=== PATIENT | female | born 1990 ===

== ENCOUNTER 2016-10-25 06:35 | Inpatient (IN) ==
[2016-10-25] MEDS ORDERED: MEPERIDINE 50 MG/1 ML VIAL IV PRN (07:31)
[2016-10-25] MEDS ORDERED: BUTORPHANOL 2 MG/ML VIAL IV PRN (07:31)
[2016-10-25] MEDS ORDERED: ONDANSETRON 4 MG/2 ML VIAL IV PRN (07:31)
[2016-10-25 07:56] LABS: Basophils % 0.2 % (0.0-0.8); Eosinophils # 0.1 10*3/uL (0.0-0.87); Hematocrit 31.5 VOL% (35.7-47.0); Hemoglobin 10.3 GM/DL (12.0-16.0); Immature Granulocytes % 0.2 %; Immature Granulocytes Absolute 0.01 #; Lymphocytes # 1.9 10*3/uL (1.4-4.0); Lymphocytes % 34.4 % (21.3-54.2); Mean Corpuscular HGB Conc 32.7 GM/DL (32-36); Mean Corpuscular Hemoglobin 28 PG (27-34); Mean Platelet Volume 10.3 FL (9.6-12.0); Monocytes # 0.5 10*3/uL (0.11-0.8); Monocytes % 8.8 % (1.7-12.7); Neutrophils % 54.4 % (38.7-73.9); Platelet Count 211 T/CUMM (130-400); Red Blood Count 3.75 MC/CUMM (3.8-5.5); Red Cell Distribution Width 13.9 % (9.3-17.3); White Blood Count 5.4 T/CUMM (4-12)
[2016-10-25] MEDS ORDERED: OXYTOCIN/LR 20 UNIT/1,000 ML BAG IV SCH (08:00)
[2016-10-25] MEDS ORDERED: LACTATED RINGERS 1,000 ML IV SCH (08:00)
[2016-10-25 08:42] LABS: Apearance,Urine CLEAR (Clear); Bilirubin,Urine Negative (Negative); Blood, Urine Negative (Negative); Glucose,Urine (UA) Negative (Negative); Ketones,Urine Negative (Negative); Nitrite,Urine Negative (Negative); Protein,Urine Negative; Squamous Epithelial Cell,Urine Occasional /HPF (0-10); Urine Color Yellow (Yellow); Urine Specific Gravity 1.012 (1.001-1.035); Urine Urobilinogen < 2.0 EU/DL (0.2-1.0); WBC,Urine 1 /HPF (0-6)
[2016-10-25 09:04] LABS: Alanine Aminotransferase 19 U/L (13-56); Albumin 2.7 G/DL (3.4-5.0); Alkaline Phosphatase 277 U/L (45-117); Aspartate Amino Transferase 20 U/L (0-37); Bilirubin,Total < 0.39 MG/DL (0.2-1.0); Blood Urea Nitrogen 9 MG/DL (7-18); Calcium 8.3 MG/DL (8.5-10.1); Glucose 81 MG/DL (74-106); Osmolality,Calculated 280.1 MOS/KG (273-304); Potassium 3.7 MMOL/L (3.5-5.1); Sodium 142 MMOL/L (136-145); Total Protein 5.9 G/DL (6.4-8.3)
[2016-10-25] MEDS ORDERED: LIDOCAINE 1% 50 ML VIAL ONE (10:43)
[2016-10-25] MEDS ORDERED: miSOPROStol 200 MCG TABLET ONE (10:43)
[2016-10-25] MEDS ORDERED: BENZOCAINE 20%/MENTHOL 0.5% SPRAY 56 GM CAN TOP PRN (11:32)
[2016-10-25] MEDS ORDERED: RHO(D) IMMUNE GLOBULIN 300 MCG SYRINGE IM ONE (11:32)
[2016-10-25] MEDS ORDERED: DIPH/TET/ACEL PERT BOOSTER VACCINE 0.5 ML VIAL IM ONE (11:32)
[2016-10-25] MEDS ORDERED: LANOLIN 50% CREAM 0.3 OZ TUBE TOP PRN (11:32)
[2016-10-25] MEDS ORDERED: ACETAMINOPHEN 325 MG TABLET PO PRN (11:32)
[2016-10-25] MEDS ORDERED: OXYTOCIN/LR 20 UNIT/1,000 ML BAG IV ONE (11:32)
[2016-10-25] MEDS ORDERED: oxyCODONE/ACETAMINOPHEN 5-325 MG TABLET PO PRN ×2 (11:32)
[2016-10-25] MEDS ORDERED: MEASLES/MUMPS/RUBELLA VACCINE 0.5 ML VIAL SUBCUT ONE (11:32)
[2016-10-25] MEDS ORDERED: BISACODYL 10 MG SUPP RECTAL PRN (11:32)
[2016-10-25] MEDS ORDERED: HYDROCORTISONE 2.5% RECTAL CREAM 30 GM TUBE TOP PRN (11:32)
[2016-10-25] MEDS ORDERED: WITCH HAZEL PADS 100/JAR TOP PRN (11:32)
[2016-10-25] MEDS ORDERED: ACETAMINOPHEN/CODEINE 300-30 MG TABLET PO PRN (11:33)
--- NOTE | 2016-10-25 13:59 | OB/GYN History & Physical ---
History of Present Illness Chief complaint: In for induction of labor History of present illness: Ms. Barrientos is a 26 year old female 4 para 3 living 3 whose SHIRAZ is 2016. The patient is 39 weeks and 3 days. She presents for elective induction of labor due to term . The risk and benefits has been thoroughly discussed with the patient and significant other, plan of care has been discussed with Dr. Sarmiento and all parties are in agreement plan. The patient received her care through the [facility] in the [place] [facility]. She received routine care and her course was uneventful. labs: She is O+, RPR is nonreactive, rubella is immune, Pap smear was within normal limits, hepatitis B negative, HIV negative, GBS culture negative. Review of systems is negative the patient has had 3 previous vaginal deliveries and she reported no complications with any of her pregnancies. Home Medications Medication Instructions Recorded Confirmed Type Multivitamin () [ 1 tablet PO DAILY 10/25/16 10/25/16 History Vitamin] Allergies Allergy/AdvReac Type Severity Reaction Status Date / Time No Known Allergies Allergy Verified 10/25/16 07:31 12 point system: reviewed and no additional remarkable complaints except as stated Medical,Surgical,& Family Hx - Medical History Medical History: noncontributory - Family History Family History: Reports;: Family Diabetes - Social History Smoking Status: Never smoker Frequency of Alcohol Use: None Type of Drug Use: None Marital Status: Single Lives With:: Significant Other Functional capacity: independent ambulation 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 - Constitutional Vitals: Vital Signs Temp Pulse Resp BP 10/25/16 08:32 97.1 F L 77 20 116/78 General appearance: no acute distress - Antepartum / Post Antepartum Exam Cervix - Dilatation: 5 cm at admission Effacement: 70% effaced Station: -1 station Rupture: Intact Presentation: Vertex Heart Rate: 140s-150 Breast: bilateral: normal Abdomen obstetrics: Present: bowel sounds normal Vagina: Present: normal moisture Uterus exam: Present: enlarged Anus/Rectum: Present: normal perianal skin - Head Head exam: Present: normal inspection - Respiratory Respiratory exam: Present: clear to auscultation bilaterally - Cardiovascular Cardiovascular exam: Present: regular rate and rhythm - GI/Abdominal GI/Abdominal exam: Present: normal bowel sounds, soft - Extremities Exam Extremities exam: Present: normal inspection - Back Exam Back exam: Present: normal inspection - Neurological Exam Neurological exam: Present: alert, oriented X3, normal gait - Psychiatric Psychiatric exam: Present: normal affect, normal mood - Skin Skin exam: Present: normal color, warm Assessment and Plan (1) Term Status: Acute Assessment and plan: Admit IV fluids IV Pitocin per protocol Artificial rupture membranes Internal monitors if indicated Epidural anesthesia if desired Anticipate Current Visit: Yes Results - Labs CBC & BMP: 10/25/16 07:48 10/25/16 07:48 Quality Measures - VTE Contraindication to Pharmacological VTE Prophylaxis: Clinical assessment deems Pt at low risk, no prophalaxis needed
--- NOTE | 2016-10-25 14:05 | Event Note ---
911: Artificial rupture membranes performed with clear fluid noted and patient tolerated the procedure well.
--- NOTE | 2016-10-25 14:07 | Event Note ---
HPI: Ms. Barrientos is a 26-year-old female who presented to the labor department for elective induction of labor due to term . The risk benefits were thoroughly discussed with the patient and significant other, plan of care was discussed with Dr. Sarmiento and all parties were in agreement plan. Stage I: The patient was admitted she received IV fluids and IV Pitocin per protocol. Artificial rupture membranes was performed clear fluid noted. An epidural was obtained for pain control. The patient progressed in labor with a CAT 1 tracing. She had an uneventful course of labor. Stage II: The patient was complete complain of pressure and desire to push. She pushed for approximately 15 minutes after which time the 's head was delivered. The mouth and nose were suctioned on the perineum, the remainder the infant was delivered at 1124 a viable male infant was noted. The infant was placed on the mom's abdomen for skin to skin bonding. Apgars were 9 9 at 1 minute and 9 at 5 minutes. weight was 7 pounds and 9 ounces. A cord pH was obtained and sent to the lab. Stage III: A spontaneous delivery of a Bui placenta with a three-vessel cord noted. The placenta was further examined appeared to be grossly intact. The vagina cervix was inspected with no tears or lacerations noted. Estimated blood loss was approximately 150 cc. At the time of dictation mother and baby are both in stable condition.
[2016-10-25] MEDS: DOCUSATE SODIUM 100 MG CAPSULE PO SCH (21:00)
[2016-10-26] MEDS: IBUPROFEN 800 MG TABLET PO PRN ×2 (04:10→17:59)
[2016-10-26 05:55] LABS: Basophils % 0.2 % (0.0-0.8); Eosinophils # 0.1 10*3/uL (0.0-0.87); Eosinophils % 1.4 % (0.00-10.9); Hematocrit 29.3 VOL% (35.7-47.0); Hemoglobin 9.3 GM/DL (12.0-16.0); Immature Granulocytes % 0.4 %; Immature Granulocytes Absolute 0.04 #; Lymphocytes # 2.3 10*3/uL (1.4-4.0); Lymphocytes % 22.9 % (21.3-54.2); Mean Corpuscular HGB Conc 31.7 GM/DL (32-36); Mean Corpuscular Hemoglobin 27 PG (27-34); Mean Corpuscular Volume 84.2 FL (87-102); Monocytes # 0.9 10*3/uL (0.11-0.8); Monocytes % 8.3 % (1.7-12.7); Neutrophils # 6.8 10*3/uL (1.4-7.4); Neutrophils % 66.8 % (38.7-73.9); Platelet Count 200 T/CUMM (130-400); Red Blood Count 3.48 MC/CUMM (3.8-5.5); White Blood Count 10.2 T/CUMM (4-12)
[2016-10-26] MEDS: FERROUS SULFATE 325 MG TABLET PO SCH (08:37)
[2016-10-26] MEDS: DOCUSATE SODIUM 100 MG CAPSULE PO SCH ×2 (08:37→21:30)
--- NOTE | 2016-10-26 10:34 | OB/GYN Progress Note ---
Assessment and Plan (1) Term Status: Acute Assessment and plan: Admit IV fluids IV Pitocin per protocol Artificial rupture membranes Internal monitors if indicated Epidural anesthesia if desired Anticipate Current Visit: Yes (2) Vaginal delivery Status: Acute Assessment and plan: Initiate routine orders. 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 Bonding well with . 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 - Constitutional Vitals: Vital Signs Temp Pulse Resp BP Pulse Ox 10/26/16 07:55 98.6 F 58 L 16 109/65 98 10/26/16 05:52 18 10/26/16 04:10 97.5 F L 65 18 100/59 99 10/26/16 02:00 18 10/25/16 23:19 97.8 F 61 18 102/63 99 10/25/16 20:00 99 H 16 10/25/16 19:09 98.1 F 72 16 119/72 99 10/25/16 16:00 98.0 F 53 L 20 116/75 98 10/25/16 15:15 57 L 20 110/68 98 10/25/16 14:15 97.3 F L 57 L 20 119/71 98 General appearance: no acute distress - Antepartum / Post Post Exam Breast: bilateral: normal Abdomen obstetrics: Present: bowel sounds normal Vagina: Present: normal moisture, discharge (Light lochia room) Uterus exam: Present: enlarged (Fundus firm and mid) Anus/Rectum: Present: normal perianal skin - Head Head exam: Present: normal inspection - Respiratory Respiratory exam: Present: clear to auscultation bilaterally - Cardiovascular Cardiovascular exam: Present: regular rate and rhythm - GI/Abdominal GI/Abdominal exam: Present: normal bowel sounds, soft - Extremities Exam Extremities exam: Present: normal inspection - Neurological Exam Neurological exam: Present: alert, oriented X3 - Psychiatric Psychiatric exam: Present: normal affect, normal mood - Skin Skin exam: Present: normal color, warm Results - Labs CBC & BMP: 10/26/16 04:29 10/25/16 07:48
[2016-10-27] MEDS: IBUPROFEN 800 MG TABLET PO PRN ×2 (04:35→10:05)
[2016-10-27 07:34] VITALS: BP 116/69
[2016-10-27] MEDS: FERROUS SULFATE 325 MG TABLET PO SCH (10:05)
[2016-10-27] MEDS: DOCUSATE SODIUM 100 MG CAPSULE PO SCH (10:05)
--- NOTE | 2016-10-27 10:07 | Discharge Summary ---
Hospital Course - Hospital Course Hospital Course: Status post vaginal day #2 Lungs clear, cardiac exam benign, uterus is nice and firm. Extremities well with no limits and neurologic grossly intact Assessment plan Discharge today follow-up in office in 6 weeks. Specialty Discharge - Follow Up or Referrals Follow up with: Tiffani Sarmiento MD [Physician] - 12/08/16 10:00 am Discharge Plan - Discharge Data Condition at Discharge: Stable Discharge Diet: advance to your usual diet Activity: resume usual activities as tolerated Hygiene: may shower Weight Bearing at Discharge: full weight bearing Contact your physician if you experience:: fever over 101, Bleeding - Discharge Medications New Ferrous Sulfate Tab [Feosol Original Tab] 325 mg PO DAILY #60 tablet Acetamin/Codeine 300-30 Tab [Tylenol/Codeine #3] 2 tablet PO Q6H PRN #30 tablet PRN Reason: Pain Mild (1-3) Ibuprofen Tab [Motrin Tab] 800 mg PO Q6H PRN #30 tablet PRN Reason: Pain Moderate (4-7) No Action Multivitamin () [ Vitamin] 1 tablet PO DAILY - Follow Up or Referral Follow Up: Tiffani Sarmiento MD [Physician] - 12/08/16 10:00 am - Forms/Instructions Instructions: Vaginal Delivery (DC), Bleeding (DC) Exam - Constitutional Vitals: Period Temp Pulse Resp BP Sys/Fuentes Pulse Ox Last 24 Hr 97.4 F-98.9 F 60-79 18-18 92-118/53-71 97-99 DS: Provider Date of admission: 10/25/16 06:35 Primary care physician: Alf Cheney MD Attending physician on admission: Tiffani Sarmiento MD Consults: 10/25/16 07:31 Consult to Anesthesiology [CONS] Routine Consulting Provider: Reason for Anesthesiology: Epidural Consult Comment: Epidural for pain managment 10/25/16 11:32 Consult to Scrap Yard Worker [CONS] Routine Consult Scrap Yard Worker: Breast Feeding Discharging clinician: Tiffani Sarmiento MD
== END 2016-10-27 13:45 | disposition home or self-care (01) | DRG 560 ==
LOC: N.LD 06:35 → N.OB 14:15
PROVIDERS: ADMIT Obstetrics & Gynecology; ATTEND Obstetrics & Gynecology

== ENCOUNTER 2020-09-06 08:41 | Inpatient (IN) ==
[2020-09-06] MEDS ORDERED: OXYTOCIN/LR 20 UNIT/1,000 ML BAG IV ONE ×2 (08:50→11:50)
[2020-09-06] MEDS ORDERED: HYDROCORTISONE 2.5% RECTAL CREAM 30 GM TUBE TOP PRN (08:50)
[2020-09-06] MEDS ORDERED: LANOLIN 50% CREAM 0.3 OZ TUBE TOP PRN (08:50)
[2020-09-06] MEDS ORDERED: BENZOCAINE 20%/MENTHOL 0.5% SPRAY 56 GM CAN TOP PRN (08:50)
[2020-09-06] MEDS ORDERED: DIPH/TET/ACEL PERT BOOSTER VACCINE 0.5 ML VIAL IM ONE (08:50)
[2020-09-06] MEDS ORDERED: ONDANSETRON 4 MG/2 ML VIAL IV PRN (08:50)
[2020-09-06] MEDS ORDERED: WITCH HAZEL PADS 100/JAR TOP PRN (08:50)
[2020-09-06] MEDS ORDERED: oxyCODONE/ACETAMINOPHEN 5-325 MG TABLET PO PRN (08:50)
[2020-09-06] MEDS ORDERED: ACETAMINOPHEN 325 MG TABLET PO PRN (08:50)
[2020-09-06] MEDS ORDERED: BISACODYL 10 MG SUPP RECTAL PRN (08:50)
[2020-09-06] MEDS: IBUPROFEN 800 MG TABLET PO PRN ×2 (09:08→20:23)
[2020-09-06 09:13] LABS: Cord Venous Blood HCO3 22.4 MMOL/L; Cord Venous Blood PCO2 42.6 MMHG; Cord Venous Blood PO2 35.3
[2020-09-06 09:19] LABS: Basophils % 0.2 % (0.0-0.8); Eosinophils % 0.4 % (0.00-10.9); Hematocrit 38.9 VOL% (35.7-47.0); Hemoglobin 11.8 GM/DL (12.0-16.0); Immature Granulocytes % 0.5 %; Immature Granulocytes Absolute 0.04 #; Lymphocytes # 1.5 10*3/uL (1.4-4.0); Mean Corpuscular HGB Conc 30.3 GM/DL (32-36); Mean Corpuscular Volume 92.8 FL (87-102); Mean Platelet Volume 9.7 FL (9.6-12.0); Monocytes % 5.8 % (1.7-12.7); Neutrophils % 75.1 % (38.7-73.9); Platelet Count 209 T/CUMM (130-400); Red Blood Count 4.19 MC/CUMM (3.8-5.5); Red Cell Distribution Width 13.5 % (9.3-17.3); White Blood Count 8.5 T/CUMM (4-12)
[2020-09-06] MEDS ORDERED: LACTATED RINGERS 1,000 ML IV SCH (10:30)
[2020-09-06] MEDS: oxyCODONE/ACETAMINOPHEN 5-325 MG TABLET PO PRN ×2 (10:42→20:23)
[2020-09-06] MEDS: DOCUSATE SODIUM 100 MG CAPSULE PO SCH ×2 (12:56→20:17)
[2020-09-07 06:35] LABS: Basophils % 0.2 % (0.0-0.8); Eosinophils # 0.1 10*3/uL (0.0-0.87); Eosinophils % 0.7 % (0.00-10.9); Hematocrit 27.8 VOL% (35.7-47.0); Hemoglobin 8.9 GM/DL (12.0-16.0); Immature Granulocytes % 0.7 %; Immature Granulocytes Absolute 0.08 #; Lymphocytes # 2.1 10*3/uL (1.4-4.0); Lymphocytes % 17.6 % (21.3-54.2); Mean Corpuscular Volume 89.4 FL (87-102); Mean Platelet Volume 9.8 FL (9.6-12.0); Monocytes % 5.5 % (1.7-12.7); Neutrophils % 75.3 % (38.7-73.9); Platelet Count 213 T/CUMM (130-400); Red Blood Count 3.11 MC/CUMM (3.8-5.5); Red Cell Distribution Width 13.7 % (9.3-17.3); White Blood Count 12.1 T/CUMM (4-12)
[2020-09-07] MEDS: IBUPROFEN 800 MG TABLET PO PRN (06:44)
[2020-09-07] MEDS: oxyCODONE/ACETAMINOPHEN 5-325 MG TABLET PO PRN (06:45)
[2020-09-07] MEDS: DOCUSATE SODIUM 100 MG CAPSULE PO SCH ×3 (08:35→22:43)
[2020-09-07] MEDS: FERROUS SULFATE 325 MG TABLET PO SCH ×3 (08:35→22:43)
[2020-09-08 07:22] VITALS: BP 113/69
[2020-09-08] MEDS: IBUPROFEN 800 MG TABLET PO PRN (07:35)
[2020-09-08] MEDS: oxyCODONE/ACETAMINOPHEN 5-325 MG TABLET PO PRN (07:37)
[2020-09-08] MEDS: DOCUSATE SODIUM 100 MG CAPSULE PO SCH (08:35)
[2020-09-08] MEDS: FERROUS SULFATE 325 MG TABLET PO SCH (08:35)
== END 2020-09-08 13:20 | disposition home or self-care (01) | DRG 807 ==
LOC: N.LD 08:41 → N.OB 18:50
PROVIDERS: ADMIT Obstetrics & Gynecology; ATTEND Obstetrics & Gynecology